=== PATIENT | female | born 1975 | race Caucasian/White ===

== ENCOUNTER 2018-05-25 01:15 | Emergency (ER) | payer MEDICAID ==
[~2018-05-25] VITALS: Ht 154.9 cm; Wt 65.8 kg
[2018-05-25 01:30] VITALS: BP 132/94
--- NOTE | 2018-05-25 01:37 | NUR ---
PT AMBULATED WITH CRUTCH TO PROVIDE URINE THEN AMBULATING TO LOBBY WITH VSS.
--- NOTE | 2018-05-25 04:05 | NUR ---
TO ER BED 6
[2018-05-25 04:10] VITALS: BP 132/94
--- NOTE | 2018-05-25 04:10 | NUR ---
PT PRESENTED ER WITH C/O PAIN IN THE LOWER ABDOMINAL REGION. PT STATES SHE HAS FATIGUE, NAUSEA BUT DENIES VOMITING X 1 DAY. BOWL SOUNDS ACTIVE IN ALL 4 Q. SKIN IS PINK/WARM/DRY; AAOX4 WITH EVEN AND STEADY GAIT; PATIENT STATES PAIN OF 8/10 AT THIS TIME; VSS; PATIENT POSITIONED FOR COMFORT; HOB ELEVATED; BEDRAILS UP X2; BED DOWN. ER MD MADE AWARE OF PT STATUS.
--- NOTE | 2018-05-25 04:55 | NUR ---
pt left without being seen due to needing to be home in one hour and could not wait any longer. md made aware.
== END 2018-05-25 04:55 | disposition left against medical advice (07) ==
LOC: MED 01:15
DX: R10.30 Lower abdominal pain, unspecified (principal); Z53.21 Procedure and treatment not carried out due to patient leaving prior to being seen by health care provider